=== PATIENT | male | born 2000 ===

== ENCOUNTER 2019-03-03 20:28 | Emergency (ER) | payer SELFPAY ==
--- NOTE | 2019-03-03 20:35 | UC ---
Laceration HPI - History Of Current Complaint Stated Complaint: STITCHES REMOVAL Time Seen by Provider: 03/03/19 20:35 - Allergies/Home Medications Allergies/Adverse Reactions: Allergies Allergy/AdvReac Type Severity Reaction Status Date / Time No Known Allergies Allergy Verified 03/01/19 21:10 PMH/Surg Hx/FS Hx/Imm Hx - Surgical History Surgical History: None - Family History Known Family History: Positive: None - Social History Alcohol Use: Occasionally Substance Use Type: None Smoking Status (MU): Never Smoked Tobacco Discharge - Discharge Plan [facility]errals: [facility] [Primary Care Provider] -
== END 2019-03-03 20:40 | disposition left against medical advice (07) ==
LOC: UCEAST 20:28
DX: T14.8XXD Other injury of unspecified body region, subsequent encounter (principal); X58.XXXD Exposure to other specified factors, subsequent encounter; Z53.21 Procedure and treatment not carried out due to patient leaving prior to being seen by health care provider